=== PATIENT | male | born 1965 | race Caucasian/White ===

== ENCOUNTER 2017-03-03 19:15 | Inpatient (IN) | payer SELFPAY ==
[2017-03-03] MEDS ORDERED: Ondansetron HCl/PF 4 MG/2 ML Vial ONE (20:38)
[2017-03-03] MEDS ORDERED: Adacel (T-DAP) 0.5 ML VIAL ONE (20:38)
[2017-03-03 21:05] LABS: #Basophils 0.1 thou/uL (0.0-0.2); #Eosinphils 0.1 thou/uL (0.0-0.7); #Lymphocytes 2.2 thou/uL (1.20-3.40); #Monocytes 0.4 thou/uL (0.11-0.59); %Basophils 0.9 % (0.0-1.0); %Eosinophils 2.1 % (0.0-10.0); %Lymphocytes 32.6 % (21.0-51.0); Hematocrit 43.4 % (42.0-52.0); Mean Platelet Volume 6.9 fL (7.4-10.4); Red Blood Cell (RBC) Count 4.09 mill/uL (4.70-6.10); White Blood Cell (WBC) Count 6.8 thou/uL (4.8-10.8)
[2017-03-03 21:10] LABS: PTT 28.9 SEC (22.9-36.1); Prothrombin Time 13.2 SEC (12.0-14.7)
[2017-03-03 21:38] LABS: ALT (SGPT) 27 U/L (8-55); AST (SGOT) 30 U/L (5-34); Alkaline Phosphatase 70 U/L (40-150); Anion Gap 14 mmol/L (10-20); BUN (Urea Nitrogen) 11 mg/dL (8.4-25.7); Bilirubin, Total 0.2 mg/dL (0.2-1.2); Calc. Creatinine Clearance 0 mL/min (70-130); Calcium 9.5 mg/dL (7.8-10.44); Carbon Dioxide 23 mmol/L (22-29); Chloride 106 mmol/L (98-107); Estimated GFR-MDRD 87; Globulin 2.9 g/dL (2.4-3.5); Protein, Total 7.2 g/dL (6.0-8.3)
--- NOTE | 2017-03-03 21:59 | RAD ---
SINGLE VIEW OF THE CHEST: 03/03/17 COMPARISON: None. HISTORY: Preoperative radiograph. FINDINGS: Single view of the chest shows a normal sized cardiomediastinal silhouette. There is no evidence of consolidation, mass, or pleural effusion. The patient has remote right clavicle fracture. IMPRESSION: No evidence of acute cardiopulmonary disease. POS: [facility]
--- NOTE | 2017-03-03 22:12 | RAD ---
THREE VIEWS OF THE LEFT MIDDLE FINGER 03/03/17 COMPARISON: None. HISTORY: Middle finger injury one month ago with swelling and redness. FINDINGS: Three views of the left middle finger shows a diffuse soft tissue swelling particularly surrounding the DIP joint. Lucency is seen within the bones, particularly surrounding the DIP joint and there ma y be some osseous erosions of the distal phalanx. These findings would be concerning for osteomyelit is. IMPRESSION: Soft tissue swelling of the finger with findings concerning for osteomyelitis. POS: [facility]
[2017-03-03] MEDS ORDERED: Ondansetron HCl/PF 4 MG/2 ML Vial IVP PRN (22:55)
[2017-03-03] MEDS ORDERED: Ondansetron ODT 4 MG TAB SL PRN (22:55)
[2017-03-03] MEDS: Sodium Chloride 0.9% 1,000 ML IV SCH (23:37)
[2017-03-04 00:25] VITALS: BMI 28.7
[2017-03-04] MEDS ORDERED: HYDROcodone/Acetaminophen 5/325 mg Tablet PO PRN (07:35)
[2017-03-04] MEDS ORDERED: Morphine Sulfate 2 MG/ML SYRINGE SLOW IVP PRN (07:36)
[2017-03-04] MEDS ORDERED: Ondansetron HCl/PF 4 MG/2 ML Vial IVP PRN ×2 (07:36→20:41)
[2017-03-04] MEDS ORDERED: Ondansetron HCl/PF 4 MG/2 ML Vial IVP SCH (07:45)
[2017-03-04] MEDS: Sodium Chloride 0.9% 1,000 ML IV SCH (08:00)
--- NOTE | 2017-03-04 08:03 | HP ---
HISTORY OF PRESENT ILLNESS: The patient was seen in the emergency room and apparently had increased swelling nodule to the left distal tip of the third digit. The patient states that possibly around 10 weeks ago he was changing a tire on his truck. He may have got a poke by a wire protruding from the tire. He did not recall, but he is left handed and started noticing increased swelling over th at area. He used his pocket knife to kind of open the area and got some clear fluid out and then ap proximately 4 weeks after this, it started to balloon up again and he did the same thing with the sa me results. It has been getting painful and irritating so last night he decided to come in and get seen. Speaking with him this morning he states that the redness, the angriness in the finger has go tten a lot better, but it is still quite irritating and he is concerned about the length of time it has been present. PAST MEDICAL HISTORY: Healthy, with some undocumented hypertension. He has not seen anybody for th is. PAST SURGICAL HISTORY: None. 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 ALLERGIES: None. MEDICATIONS: None. FAMILY HISTORY: Noncontributory. REVIEW OF SYSTEMS: Hypertension, otherwise denies any chest pain, shortness of breath, bowel or benja dder issues. The rest of review of systems is negative except for that third digit edema. PHYSICAL EXAMINATION: GENERAL: Well-nourished male, alert, in no acute distress. Speech clear. Affect pleasant. Answer s questions appropriately, is alert and oriented x3. HEENT: Normal exam. NECK: Trachea is midline. EXTREMITIES: Upper extremities; left upper extremity shows that third digit to have a palpable rais ed area to the third digit. He is able to bend his finger, but not extend it. There is some mild t enderness to palpation, but no true fluctuance felt. The rest of upper extremity exams are normal. LABORATORY AND X-RAY FINDINGS: Sed rate was 8. C-reactive protein was less than 0.50. X-rays show findings of what appears to be a chronic mallet finger. ASSESSMENT: Left third distal tip edema, positive for mallet finger, flaps do not show any form of indication of infection. PLAN: I have talked to the patient and family members at bedside about our findings and our concer ns. We will get a hold of Dr. Fournier today and have him take a look at the finger. We will keep him n.p.o., but put orders in the computer. Hopefully, we will get to the bottom of this. X-ray di d not show any foreign material that we could see under the skin distally, just the above stated mal let finger finding
[2017-03-04] MEDS ORDERED: Lidocaine 1% (PF) 30 ML VIAL ONE (18:21)
[2017-03-04] MEDS ORDERED: Sodium Chloride 0.9% 10 ML ONE (18:21)
[2017-03-04] MEDS ORDERED: Bacitracin Zinc Ointment 30 gm TUBE ONE (18:21)
[2017-03-04] MEDS ORDERED: Thrombin 5000 UNITS/5 ML VIAL ONE (18:21)
[2017-03-04] MEDS ORDERED: Morphine Sulfate 2 MG/ML SYRINGE ONE (18:54)
[2017-03-04] MEDS ORDERED: Fentanyl 100 MCG/2 ML VIAL ONE ×3 (19:25→21:33)
[2017-03-04] MEDS ORDERED: Glycopyrrolate 0.2 MG/ML 5 ML SYRINGE ONE (19:55)
[2017-03-04] MEDS ORDERED: Dexamethasone 20 MG/5 ML VIAL ONE (19:55)
[2017-03-04] MEDS ORDERED: Propofol 200 MG/20 ML VIAL ONE (19:55)
[2017-03-04] MEDS ORDERED: Lidocaine 2% PF 10 ML AMP (For Epidural Use) ONE (19:55)
[2017-03-04] MEDS ORDERED: Ondansetron HCl/PF 4 MG/2 ML Vial ONE (19:55)
[2017-03-04] MEDS ORDERED: Labetalol HCl 100 MG/20 ML VIAL ONE (20:39)
[2017-03-04] MEDS ORDERED: Promethazine HCl 25 MG/ML VIAL IM PRN ×2 (20:41→22:30)
[2017-03-04] MEDS ORDERED: Promethazine HCl 25 MG/ML VIAL SLOW IVP PRN (20:41)
[2017-03-04] MEDS ORDERED: Meperidine HCl/PF 25 MG/ML VIAL SLOW IVP PRN (20:41)
[2017-03-04] MEDS ORDERED: Labetalol HCl 100 MG/20 ML VIAL SLOW IVP SCH (20:45)
[2017-03-04] MEDS ORDERED: Meperidine HCl/PF 25 MG/ML VIAL IM PRN (22:29)
[2017-03-05] MEDS: Ketorolac Tromethamine 30 MG/ML VIAL IVP SCH ×5 (00:04→23:57)
[2017-03-05] MEDS: Vancomycin HCl 1 GM in Premix Bag 1 BAG IVPB SCH ×3 (00:04→23:57)
[2017-03-05] MEDS: HYDROcodone/Acetaminophen 5/325 mg Tablet PO PRN ×4 (05:51→20:16)
--- NOTE | 2017-03-05 07:17 | OP ---
DATE OF PROCEDURE: 03/04/2017 PREOPERATIVE DIAGNOSIS: Right distal interphalangeal joint infectious arthritis with possible osteo myelitis. POSTOPERATIVE DIAGNOSES WITH FINDINGS: 1. Lytic bone with gross abscess formation, gross purulence base of distal phalanx intra-articular distal phalangeal joint and the subchondral bone of the distal portion of the middle phalanx, left l ariana finger. 2. Subcutaneous intertendinous purulence both sides of the tendon and proximal distal joint subcuta neously. TOURNIQUET TIME: 60 minutes. ESTIMATED BLOOD LOSS: 5 mL SURGEON: Jack Fournier M.D. HEADER OPERATOR: None. ANESTHESIA: Swedish Anesthesia, general LMA technique augmented by 12 mL of 0.5% Marcaine digital block, MP joint level. FINAL FINDINGS: Osteomyelitis, , soft tissue bone and joint tendon, chondrolysis distal and pr oximal to the joint distal phalangeal joint. INDICATION: The patient reports that 6-8 weeks ago, he was changing a tire, he had a puncture wound from the steel fibers in the tire, and he noticed swelling, purulence, and he performed 2 procedure with a knife at home, but now, it has persisted, and he came to the hospital. White blood cell cou nt, sedimentation rate, and CRP are all normal, but this is now a week old condition and clinically has infection in the joint, and urgent procedure was indicated. PROCEDURES PERFORMED: 1. Arthrotomy distal interphalangeal joint, left long finger with abscess drainage. 2. Incision of bone cortex, left long finger distal phalanx. 3. Incision of bone cortex, left long finger proximal phalanx. 4. Tenosynovectomy, extensor terminal tendon. 5. Bone biopsy and specimen sent. DESCRIPTION OF PROCEDURE: After successful general LMA technique, limb was prepped and draped. A t imeout, appropriate side, site, and consent all matched in this particular procedure. After tourniq uet was inflated to 250 mmHg pressure, a hockey stick double S incision was made, carried through sk in, subcutaneous tissue, and immediately purulence could be seen escaping from both sides of the ext ensor tendon and a 2 mm hole in the terminal tendon in the central portion. There was a large subcu taneous abscess cavity, this was debrided. The extensor terminal tendon needed to undergo a formal tenosynovectomy to remove the thick slime layer which is almost consistency of butter or between the subcutaneous skin and the tendon and surrounding the tendon is even deep. We then performed arthro jovon, both sides of the tendon were elevated; however, the tendon remained intact on the distal phal anx and we were able to see gross purulence inside the joint. This was excised. A combination of B eaver blade, a small curette, Quincy elevator, and a tenotomy scissors. Then, we were able to see ho w soft the bone was on the distal phalanx base and along the proximal phalanx. Next, we performed t he incision in the bone cortex to remove the obviously infected bone first when the distal phalanx b ase and then from the proximal phalanx neck. The tenosynovectomy was completed, the arthrotomy had been opened, and an incision of bone cortexes both side of the joint was not complete. We then removed the subcutaneous abscess to a point approximately 2 cm proximal to the joint, we the n irrigated with 1 liter normal saline and Pulsavac pressure, 1 liter of normal saline with bulb syr sam pressure both of which and antibiotics inside. The tourniquet was deflated. Hemostasis obtained. A normal saline soaked gauze was placed into the wound and packed once we leave it to the joint and a bulky dressing applied over that with Kerlix, 4 x 4s, and finally on top was a Coban 2 inch. The patient left the operating room without evidence of anesthetic complication or microvascular compromises. The patient's finger was pink when the to urniquet was released.
[2017-03-05] MEDS ORDERED: Vancomycin HCl 1 GM in Premix Bag 1 BAG IVPB SCH (09:00)
[2017-03-05] MEDS: cloNIDine HCl 0.1 MG TAB PO PRN (23:57)
[2017-03-06] MEDS: Ketorolac Tromethamine 30 MG/ML VIAL IVP SCH ×4 (05:18→23:48)
--- NOTE | 2017-03-06 07:31 | PRG ---
[facility] ORTHOPEDIC HAND ROUNDS EVALUATION Mr. Grupo Mcdonald was admitted yesterday because of overwhelming infection involving his joint with the concept that he would have the debridement performed in the operating room by tito Chao be evaluated for question of long-term IV antibiotics versus oral and also what antibiotic and dur ation to choose. Infectious Disease consultation was requested. He reports that Infectious Disease did come by the room today, but he was out of the room taking care of something upstairs, and he wa s very anxious to go home at the time of evaluation. PHYSICAL EXAMINATION: Dressing intact. No digits showing evidence of circular compromise, neurovas cular compromise, or compression. The patient was in very top form today. Now, the plan would be to have him see Infectious Disease tomorrow if not discharged with peter camarena, follow up in our clinic every other day until the wound is stable enough to be closed.
[2017-03-06] MEDS: HYDROcodone/Acetaminophen 5/325 mg Tablet PO PRN ×4 (08:56→21:45)
[2017-03-06 11:10] LABS: Vancomycin, Trough 10.6 ug/mL
[2017-03-06] MEDS: Vancomycin HCl 1 GM in Premix Bag 1 BAG IVPB SCH ×2 (12:19→23:49)
[2017-03-06] MEDS: cloNIDine HCl 0.1 MG TAB PO PRN (12:20)
--- NOTE | 2017-03-06 18:28 | CON ---
DATE OF CONSULTATION: 03/06/2017 REASON FOR CONSULTATION: Finger infection. HISTORY OF PRESENT ILLNESS: A 51-year-old with a history of chronic smoking and hypertension, who s ustained injury to the tip of the third digit left hand more than 2 months ago and then he developed an area of induration. Of about 4 to 6 weeks ago, he proceeded to puncture it with a knife and a p en. Reportedly, he did not clean the devices and he did a second time and then a few weeks ago abou t 6 weeks before admission he developed worsening inflammatory changes. He still did not look for m edical help until it got to the point where it was too painful for him to stand inflammatory process and came to the emergency room, has been admitted and Dr. Fournier has carried out arthrotomy dista l interphalangeal joint, left long finger; incision of bone cortex distal phalanx and proximal phala nx; tenosynovectomy and bone biopsy. The samples were submitted for culture, but only for AFB cultu res. I have called micro lab and no routine or fungal cultures have been submitted. Currently, the patient has mild pain at the site. No headaches, visual symptoms, sore throat, odynophagia, dyspha arthur, no cough or sputum production or chest pain, maybe mild cough. No dyspnea. No abdominal pain or diarrhea. No genitourinary symptoms. No other joint symptoms. No neurological symptoms. PAST MEDICAL HISTORY: Hypertension and chronic smoking. ALLERGIES: None. 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 He does not drink. No drug use. CURRENT MEDICATIONS: Hydrocodone, labetalol, ondansetron, vancomycin, and cefazolin. FAMILY HISTORY: Noncontributory. PHYSICAL EXAMINATION: VITAL SIGNS: Temperature has been normal, blood pressure 160/100, pulse 68, respirations 18, O2 sat 94%. GENERAL: Appears in no distress. SKIN: Remarkable for the left long finger with bulky dressing, which was not removed. Peripheral I V access. No lymphadenopathy. HEENT: Ocular movements are conjugate. Sclerae are white. Oral cavity with numerous teeth in plac e with quite significant decay and gum disease. NECK: Supple, no jugular venous distention or carotid bruits, no thyromegaly. LUNGS: With symmetric clear breath sounds. HEART: S1, S2, regular rate. No S3 or S4. ABDOMEN: Soft, not distended or tender. No ascites. No bladder distention. EXTREMITIES: No other joint inflammatory activity. Pulses are 1+ in dorsalis pedis. NEUROLOGIC: Nonfocal. Cognitive function appears to be intact. LABORATORY DATA: WBC count 6.8, hemoglobin 14, platelets 301 with normal differential. INR is 1.0. Chemistries are essentially normal. Vancomycin trough 10.6 and acid fast smear was negative. 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 This is a chronic process. DISCUSSION: This might represent self inoculation, which progressed to an overt inflammatory proces s. The delay in patient looking for medical assistance probably contributed to the advanced stage o f the infection at the distal phalanx when he presented. The potential organisms associated include the usual pyogenic organisms including Staphylococcus aureus, gram negative rods, anaerobes, and St reptococci, as well as fungal and mycobacterial pathogens. We will add a routine and fungal culture s to the already submitted for AFB cultures. Continue vancomycin and cefazolin. Await on some resu lts before discharge planning. Probably, we will need a PICC line and protracted IV antimicrobial t herapy depending on the results of the cultures. If the processes secondary to an AFB infection or atypical mycobacterial infection, then the regimen will have to be addressed according to the result s of the cultures, which may take at least 1 to 2 weeks to come back, but we may have some results o f culture positivity by Wednesday if it is a routine pathogen.
[2017-03-07] MEDS: cloNIDine HCl 0.1 MG TAB PO PRN (00:32)
[2017-03-07] MEDS: Ketorolac Tromethamine 30 MG/ML VIAL IVP SCH ×4 (06:41→22:55)
[2017-03-07] MEDS: HYDROcodone/Acetaminophen 5/325 mg Tablet PO PRN ×4 (06:46→20:37)
[2017-03-07] MEDS: Vancomycin HCl 1 GM in Premix Bag 1 BAG IVPB SCH ×2 (11:27→22:55)
[2017-03-08] MEDS: cloNIDine HCl 0.1 MG TAB PO PRN (00:16)
[2017-03-08] MEDS: HYDROcodone/Acetaminophen 5/325 mg Tablet PO PRN ×4 (00:21→14:41)
[2017-03-08] MEDS: Ketorolac Tromethamine 30 MG/ML VIAL IVP SCH ×3 (05:46→19:39)
[2017-03-08] MEDS: Vancomycin HCl 1 GM in Premix Bag 1 BAG IVPB SCH (12:27)
[2017-03-08 16:42] VITALS: BP 136/82; TEMP 98.1
== END 2017-03-08 19:10 | disposition home or self-care (01) | DRG 506 ==
LOC: ERS 19:15 → SURG A 22:50
PROVIDERS: ADMIT Orthopaedic Surgery; ATTEND Orthopaedic Surgery
PROC: 0R9X0ZZ Drainage of Left Finger Phalangeal Joint, Open Approach (ICD-10-PCS; principal; 2017-03-04)
PROC: 0LB80ZZ Excision of Left Hand Tendon, Open Approach (ICD-10-PCS; 2017-03-04)
DX: M00.842 Arthritis due to other bacteria, left hand (principal); M86.642 Other chronic osteomyelitis, left hand; F17.210 Nicotine dependence, cigarettes, uncomplicated; M65.842 Other synovitis and tenosynovitis, left hand
CPT/HCPCS: 36415; 71010; 80053; 80202; 85025; 85610; 85652; 85730; 86140; 87070; 87077; 87102; 87116; 87186; 87205; 87206; 90471; 90715; 93005; 96361; 96374; 96375; 96376; A4216; J1100; J1885; J2001; J2270; J2405; J2704; J3010; J3370; J3490

== ENCOUNTER 2019-07-02 15:31 | Emergency (ER) | payer SELFPAY ==
--- NOTE | 2019-07-02 15:53 | RAD ---
EXAM: XR Chest Pa Lat STANDARD PROVIDED CLINICAL HISTORY: Cough and fever COMPARISON: 03/03/2017 FINDINGS: Cardiac silhouette is upper limits normal to mildly enlarged. There is blunting of both costophrenic angles suggesting pleural fluid bilaterally. There is patchy opacity present at the left lung base that may reflect subsegmental atelectasis or infiltrate. IMPRESSION: Bilateral pleural fluid with subsegmental atelectasis versus infiltrate left lung base.
[2019-07-02 16:31] LABS: #Basophils 0.1 thou/uL (0.0-0.2); #Eosinphils 0.1 thou/uL (0.0-0.7); #Lymphocytes 1.8 thou/uL (1.20-3.40); #Monocytes 0.8 thou/uL (0.11-0.59); #Neutrophils 12.6 thou/uL (1.40-6.50); %Basophils 0.3 % (0.0-1.0); %Eosinophils 0.5 % (0.0-10.0); %Lymphocytes 11.8 % (21.0-51.0); %Monocytes 5.4 % (0.0-10.0); %Neutrophils 81.9 % (42.0-75.0); Hemoglobin 12.8 g/dL (14.0-18.0); Mean Corpuscular HGB CONC 33.1 g/dL (32.0-36.0); Mean Corpuscular Hemoglobin 33.4 pg (27.0-31.0); Mean Platelet Volume 6.7 fL (7.4-10.4); Platelet Count 728 thou/uL (130-400); RBC Distribution Width 13.1 % (11.5-14.5); Red Blood Cell (RBC) Count 3.83 mill/uL (4.70-6.10); White Blood Cell (WBC) Count 15.3 thou/uL (4.8-10.8)
[2019-07-02] MEDS ORDERED: cefTRIAXone\\ROCEPHIN 2 GM VIAL ONE (16:43)
[2019-07-02 16:50] LABS: ALT (SGPT) 12 U/L (8-55); AST (SGOT) 15 U/L (5-34); Albumin 3.8 g/dL (3.5-5.0); Alkaline Phosphatase 136 U/L (40-110); Anion Gap 15 mmol/L (10-20); BUN (Urea Nitrogen) 14 mg/dL (8.4-25.7); Bilirubin, Total 0.7 mg/dL (0.2-1.2); Calc. Creatinine Clearance 0 mL/min (70-130); Calcium 9.7 mg/dL (7.8-10.44); Carbon Dioxide 27 mmol/L (22-29); Chloride 98 mmol/L (98-107); Estimated GFR-MDRD 72; Globulin 3.8 g/dL (2.4-3.5); Glucose 113 mg/dL (70-105); Potassium 4.3 mmol/L (3.5-5.1); Protein, Total 7.6 g/dL (6.0-8.3); Sodium 136 mmol/L (136-145)
[2019-07-02] MEDS ORDERED: Azithromycin 500 MG VIAL ONE (17:20)
== END 2019-07-02 18:55 | disposition home or self-care (01) ==
LOC: ERS 15:31
DX: J18.9 Pneumonia, unspecified organism (principal); F32.9 Major depressive disorder, single episode, unspecified; F17.210 Nicotine dependence, cigarettes, uncomplicated
CPT/HCPCS: 71046; 80053; 83605; 85025; 93005; 94760; 96365; 96367; J0456; J0696

== ENCOUNTER 2019-10-27 13:38 | Inpatient (IN) | payer SELFPAY ==
[2019-10-27] MEDS ORDERED: EPINEPHrine 1 MG/ML AMP ONE (13:53)
[2019-10-27] MEDS ORDERED: methylPREDNISolone Sod Succ/PF 125 MG/2 ML VIAL ONE (13:54)
[2019-10-27] MEDS ORDERED: diphenhydrAMINE 50 MG/ML VIAL ONE (13:54)
[2019-10-27] MEDS ORDERED: Famotidine/PF 20 mg/2ml Vial ONE (13:54)
[2019-10-27 14:08] LABS: #Basophils 0.1 thou/uL (0.0-0.2); #Eosinphils 0.2 thou/uL (0.0-0.7); #Monocytes 0.5 thou/uL (0.11-0.59); #Neutrophils 4.6 thou/uL (1.40-6.50); %Lymphocytes 27.8 % (21.0-51.0); %Monocytes 6.8 % (0.0-10.0); %Neutrophils 62.4 % (42.0-75.0); Hemoglobin 17.7 g/dL (14.0-18.0); Mean Platelet Volume 7.4 fL (7.4-10.4); Platelet Count 328 thou/uL (130-400); RBC Distribution Width 15.9 % (11.5-14.5); Red Blood Cell (RBC) Count 5.07 mill/uL (4.70-6.10); White Blood Cell (WBC) Count 7.4 thou/uL (4.8-10.8)
[2019-10-27 14:30] LABS: ALT (SGPT) 15 U/L (8-55); AST (SGOT) 21 U/L (5-34); Albumin 4.7 g/dL (3.5-5.0); Alkaline Phosphatase 95 U/L (40-110); Anion Gap 18 mmol/L (10-20); BUN (Urea Nitrogen) 29 mg/dL (8.4-25.7); Bilirubin, Total 0.6 mg/dL (0.2-1.2); Calc. Creatinine Clearance 0 mL/min (70-130); Calcium 9.7 mg/dL (7.8-10.44); Carbon Dioxide 18 mmol/L (22-29); Chloride 104 mmol/L (98-107); Estimated GFR-MDRD 35; Glucose 100 mg/dL (70-105); Potassium 3.7 mmol/L (3.5-5.1); Protein, Total 7.7 g/dL (6.0-8.3); Sodium 136 mmol/L (136-145)
[2019-10-27] MEDS ORDERED: HYDROcodone/Acetaminophen 5/325 mg Tablet PO PRN (16:08)
[2019-10-27] MEDS ORDERED: Ondansetron PF 4 MG/2 ML Vial IVP PRN (16:08)
[2019-10-27] MEDS ORDERED: Ondansetron ODT 4 MG TAB PO PRN (16:08)
[2019-10-27] MEDS ORDERED: hydrALAZINE 20 MG/ML VIAL SLOW IVP PRN (16:18)
[2019-10-27 16:59] VITALS: BMI 29.2
[2019-10-27] MEDS: Sodium Chloride 0.9% 1,000 ML IV SCH (18:03)
[2019-10-27] MEDS: methylPREDNISolone Sod Succ 40 MG VIAL IVP SCH (18:05)
[2019-10-27] MEDS: Famotidine 20 MG TAB PO SCH (19:49)
[2019-10-28] MEDS: methylPREDNISolone Sod Succ 40 MG VIAL IVP SCH ×3 (00:20→11:42)
--- NOTE | 2019-10-28 00:47 | PDOC.HHP ---
Hospitalist HPI - History of Present Illness Allergic reaction History of Present Illness: Presented to his PCP's office yesterday for follow up of HTN and depression. Says his medications of Buspar and Lisinopril were changed, but he has not actually picked up the new meds yet. While there, he received a flu shot. He has had flu shots in the past with no difficulties. Very soon after receiving this flu vaccine, he started feeling nauseated. By last night, he had some facial swelling. Today it persisted and he had some sensation of a dry and swollen throat. This has caused some minor issues with feeling like it might be harder to breath. Presented to the ED. ED Course: He was diagnosed with a significant allergic reaction to his flu vaccine. He was given Solumedrol, Benadryl and Pepcid. Also had epinephrine given. Says he if feeling a little better overall. Hospitalist ROS - Review of Systems Constitutional: denies: fever, chills, sweats Respiratory: reports: shortness of breath Cardiovascular: denies: chest pain, palpitations Gastrointestinal: reports: nausea. denies: vomiting, abdominal pain Skin: denies: rash All other systems reviewed; all pertinent +/- noted in HPI/Subj - Medication Medications: Active Medications Generic Name Dose Route Start Last Admin Trade Name Freq PRN Reason Stop Dose Admin Hydrocodone Bitart/Acetaminophen 1 tab 10/27/19 16:08 10/27/19 19:49 [place] 5/325 PO 1 tab Q4H PRN Administration Moderate Pain (4-6) Famotidine 20 mg 10/27/19 21:00 10/27/19 19:49 Pepcid PO 20 mg BID ROMAINE Administration Sodium Chloride 1,000 mls @ 75 mls/hr 10/27/19 16:15 10/27/19 18:03 Normal Saline 0.9% IV 1,000 mls .[id number] ROMAINE Administration Methylprednisolone Sodium Succinate 40 mg 10/27/19 18:00 10/28/19 00:20 Solu-Medrol IVP 40 mg Q6HR ROMAINE Administration Home Medications: Lisinopril Juan Ramonpar Hospitalist History - Past Medical History Source: patient Cardiac: reports: HTN Psych: reports: Depression - Past Surgical History Other Surgical History: Finger abscess drainage. - Family History Family History: reports: no pertinent history - Social History Smoking Status: Current every day smoker Alcohol: reports: Occassional Drugs: reports: none Living Situation: With Family Other Social History: Full code. Mother would be his surrogate decision maker if necessary. - Exam General - other findings: Severe facial edema. Especially in the periorbital area. ENT - other findings: Mild pharyngeal edema. No threatened occlusion. Neck: supple, symmetric, no JVD, no thyromegaly, no lymphadenopathy, no carotid bruit Heart: RRR, no murmur, no gallops, no rubs, normal peripheral pulses Respiratory: CTAB, no wheezes, no rales, no ronchi, normal chest expansion, no tachypnea, normal percussion Gastrointestinal: soft, non-tender, non-distended, normal bowel sounds, no palpable masses, no hepatomegaly, no splenomegaly, no bruit Extremities: no cyanosis, no clubbing, no edema Skin: normal turgor, no lesions, no rashes Skin - other findings: Sun burn to shoulders. Neurological: cranial nerve grossly intact, normal sensation to touch, no weakness, no focal deficits, no new deficit Musculoskeletal: normal tone, normal strength, no muscle wasting Psychiatric: normal affect, normal behavior, A&O x 3 Hospitalist Results - Labs Result Diagrams: 10/27/19 13:53 10/27/19 13:53 Lab results: WBC 7.4 thou/uL (4.8-10.8) 10/27/19 13:53 Hgb 17.7 g/dL (14.0-18.0) 10/27/19 13:53 Hct 52.1 % (42.0-52.0) H 10/27/19 13:53 MCV 103.0 fL (78.0-98.0) H 10/27/19 13:53 Plt Count 328 thou/uL (130-400) 10/27/19 13:53 Neutrophils % 62.4 % (42.0-75.0) 10/27/19 13:53 Sodium 136 mmol/L (136-145) 10/27/19 13:53 Potassium 3.7 mmol/L (3.5-5.1) 10/27/19 13:53 Chloride 104 mmol/L (98-107) 10/27/19 13:53 Carbon Dioxide 18 mmol/L (22-29) L 10/27/19 13:53 BUN 29 mg/dL (8.4-25.7) H 10/27/19 13:53 Creatinine 2.01 mg/dL (0.7-1.3) H 10/27/19 13:53 Glucose 100 mg/dL (70-105) 10/27/19 13:53 Calcium 9.7 mg/dL (7.8-10.44) 10/27/19 13:53 Total Bilirubin 0.6 mg/dL (0.2-1.2) 10/27/19 13:53 AST 21 U/L (5-34) 10/27/19 13:53 ALT 15 U/L (8-55) 10/27/19 13:53 Alkaline Phosphatase 95 U/L (40-110) 10/27/19 13:53 Serum Total Protein 7.7 g/dL (6.0-8.3) 10/27/19 13:53 Albumin 4.7 g/dL (3.5-5.0) 10/27/19 13:53 Hospitalist H&P A/P - Problem (1) Allergic reaction Code(s): T78.40XA - ALLERGY, UNSPECIFIED, INITIAL ENCOUNTER Status: Acute (2) HTN (hypertension) Code(s): I10 - ESSENTIAL (PRIMARY) HYPERTENSION Status: Acute (3) Depression Code(s): F32.9 - MAJOR DEPRESSIVE DISORDER, SINGLE EPISODE, UNSPECIFIED Status : Acute (4) SPARKLE (acute kidney injury) Code(s): N17.9 - ACUTE KIDNEY FAILURE, UNSPECIFIED Status: Acute - Plan Plan: Actually unclear if this is a reaction to the flu vaccine or angioedema from the ACEI. Temporally related to the flu vaccine. Most likely culprit. Observation. Continue steroids, H2 antagonist. IMCU to ensure airway stability. Would not recommend continuation of the ACEI. BP is running high. May be related to the epinephrine. PRN hydralazine. Does not have pre-renal indices. No significant hx of renal disease. Hydrate. Repeat labs in am.
[2019-10-28 04:01] LABS: #Lymphocytes 0.7 thou/uL (1.20-3.40); %Basophils 0.1 % (0.0-1.0); %Eosinophils 0.1 % (0.0-10.0); %Lymphocytes 7.2 % (21.0-51.0); %Monocytes 0.4 % (0.0-10.0); %Neutrophils 92.3 % (42.0-75.0); Hemoglobin 16.8 g/dL (14.0-18.0); Mean Corpuscular HGB CONC 32.3 g/dL (32.0-36.0); Mean Corpuscular Hemoglobin 33.8 pg (27.0-31.0); Platelet Count 308 thou/uL (130-400); RBC Distribution Width 15.8 % (11.5-14.5); Red Blood Cell (RBC) Count 4.97 mill/uL (4.70-6.10); White Blood Cell (WBC) Count 9.7 thou/uL (4.8-10.8)
[2019-10-28 04:21] LABS: Anion Gap 15 mmol/L (10-20); Calc. Creatinine Clearance 71 mL/min (70-130); Calcium 8.7 mg/dL (7.8-10.44); Carbon Dioxide 19 mmol/L (22-29); Chloride 106 mmol/L (98-107); Estimated GFR-MDRD 50; Glucose 174 mg/dL (70-105); Potassium 4.1 mmol/L (3.5-5.1); Sodium 136 mmol/L (136-145)
[2019-10-28] MEDS: Sodium Chloride 0.9% 1,000 ML IV SCH (06:34)
[2019-10-28 07:06] VITALS: TEMP 97.8
[2019-10-28] MEDS ORDERED: Aspirin 325 mg Enteric Coated Tablet PO SCH (09:00)
[2019-10-28] MEDS: Famotidine 20 MG TAB PO SCH (09:29)
[2019-10-28] MEDS ORDERED: hydrALAZINE 10 MG TAB PO SCH (11:15)
--- NOTE | 2019-10-29 03:34 | DIS ---
DATE OF ADMISSION: 10/27/2019 DATE OF DISCHARGE: 10/28/2019 DISCHARGE DIAGNOSES: 1. Allergic reaction, possible angioedema reaction, possibly from influenza shot versus an JESSE inhibitor. 2. Hypertension. 3. Depression. 4. Acute kidney injury. HOSPITAL COURSE: The patient is a 54-year-old male who initially presented to the hospital with complaints of a possible allergic reaction. He states that he has been taking the lisinopril and BuSpar for about a week and also got an allergy shot on the day of his reaction. A few hours later, he started having feeling very nauseated, facial swelling, and felt like his throat was swelling, so he came into the ER. The patient at this time was given Benadryl, Pepcid, and Solu-Medrol. He was also given epinephrine. The patient following day was able to tolerate his diet. His symptoms have improved. He has been advised to not take the lisinopril, it is unclear if his reaction was secondary to lisinopril, which is most likely versus the influenza shot that he received. The patient will follow up with his primary care doctor next week. He has been given the following; 1. Pepcid 20 mg twice a day. 2. Hydralazine 25 mg twice a day instead of lisinopril. 3. Medrol Dosepak. 4. Aspirin. 5. BuSpar. The patient has been asked to take his blood pressure at home and keep a log. PHYSICAL EXAMINATION: VITAL SIGNS: Temperature 97.8, heart rate of 91, his blood pressure is 169/92, 100% on room air. GENERAL: He is awake, alert, and oriented x3. Does not appear in distress. CVS: S1, S2 present. No murmurs, rubs, gallops. Again, he will be discharged home. Follow up his Primary next week. Job ID: [id number]
[2019-11-02 16:04] LABS: BUN (Urea Nitrogen) 34 mg/dL (8.4-25.7)
== END 2019-10-28 12:20 | disposition home or self-care (01) | DRG 916 ==
LOC: ERS 13:38 → IMCU/EMU 15:31
PROVIDERS: ADMIT Internal Medicine; ATTEND Internal Medicine
DX: T78.3XXA Angioneurotic edema, initial encounter (principal); N17.9 Acute kidney failure, unspecified; T44.5X5A Adverse effect of predominantly beta-adrenoreceptor agonists, initial encounter; T50.B95A Adverse effect of other viral vaccines, initial encounter; I10 Essential (primary) hypertension; F32.9 Major depressive disorder, single episode, unspecified; F17.210 Nicotine dependence, cigarettes, uncomplicated
CPT/HCPCS: 36415; 80048; 80053; 85025; 96372; 96374; 96375; J0171; J1200; J2920; J2930; S0028